=== PATIENT | male | born 1960 | race African-American/Black ===

== ENCOUNTER → 2019-08-07 | Outpatient (CLI) | payer SELFPAY ==
[2015-07-28 15:00] VITALS: BP 98/62
[~2019-08-07] MED LIST: AMLO10TA8 PO; ATEN100T PO; ENAL1TAB5 PO; INSU100I17 SQ; INSU100I27 SQ; LISI10TA2 PO
== END ==
LOC: LAB 14:05
PROVIDERS: ATTEND Internal Medicine Gastroenterology
DX: Z11.59 Encounter for screening for other viral diseases (principal)
CPT/HCPCS: C9803; U0003; 36415

== ENCOUNTER → 2019-08-12 | Day surgery (SDC) | payer OTHER ==
[~2019-08-12] MED LIST changes: +IV RINGERS,LACTATED 1000ML 1,000 ML IV SCH; +LIDOCAINE 2% PF 5 ML VIAL. ONE; +PROPOFOL 10 MG/ML (20ML) VIAL. IV ONE
--- NOTE | 2019-08-12 13:00 | PDOC1 ---
History and Physical Date of Admission Date of Admission DATE: 08/12/19 TIME: 12:51 Identification/Chief Complaint Chief Complaint Screening pre-reversal of colostomy. Source Source: Chart review, Patient History of Present Illness History of Present Illness 58 y/o male post-sigmoid resection for perforated diverticulitis. To have reversal and screening exam requested prior to this. No prior colonoscopy. Has developed peristomal hernia as well and plans to repair this as well. Denies ab d pain, overt blood in stool or melena. Wt/appetite OK. No N, V. GIFH negative. Denies heartburn, dysphagia, PUD, GB, liver or pancreatic history. No tobacco use. Occ/rare alcohol. Past Medical History Cardiovascular: HTN Endocrine: Diabetes (type II, currently diet-controlled) Past Surgical History Past Surgical History: Colon Resection (sigmoid, with repair colovesical fistula, appendectomy and end colostomy/Shankar pouch) Family History Family History: Diabetes, Hypertension Social History Smoke: No ALCOHOL: occassional Drugs: None Current Medications Current Medications Current Medications Propofol (Diprivan) 200 mg STK-MED ONCE IV ; Start 08/12/19 at 12:42; Stop 08/12/19 at 12:42; Status DC Lidocaine HCl (Lidocaine Pf 2% Vial) 5 ml STK-MED ONCE .ROUTE ; Start 08/12/19 at 12:42; Stop 08/12/19 at 12:42; Status DC Active Scripts Reported Amlodipine Besylate 10 Mg Tablet 10 Mg PO DAILY Lisinopril 10 Mg Tablet 10 Mg PO DAILY Atenolol 100 Mg Tablet 100 Mg PO DAILY Allergies Allergies: Coded Allergies: No Known Drug Allergies (Unverified , 08/12/19) ROS Review of System Otherwise negative. Physical Exam General: Alert, Oriented X3, Cooperative, No acute distress Lungs: Clear to auscultation, Normal air movement Heart: S1S2, RRR, no gallops, no murmurs Abdomen: Normal bowel sounds, Soft, No tenderness, No hepatosplenomegaly, No masses, Other (colostomy LLQ with adjacent ventral hernia) Rectal Exam: deferred (to procedure) Extremities: No cyanosis, No edema Skin: No significant lesion Neuro: Normal gait, Normal speech, Strength at 5/5 X4 ext, Normal tone, Sensation intact, Cranial nerves 3-12 NL, Reflexes 2+ Psych/Mental Status: Mental status NL, Mood NL Vitals Vitals see nursing record VTE Prophylaxis Ordered VTE Prophylaxis Devices: No VTE Pharmacological Prophylaxi: No Assessment/Plan Assessment/Plan IMP: Screening needed prior to reversal of colonstomy. Appears historically at average risk. PLAN: Colonoscopy per stoma/exam rectal pouch as well. KRISTY HOOKER MD Aug 12, 2019 13:00
--- NOTE | 2019-08-12 13:42 | PDOC4 ---
PROCEDURE Procedure Colonoscopy per stoma/exam of Shankar pouch Indication: Screening prior to colostomy reversal. Meds: per anesthesia Findings: CARLOS: Normal, prostate normal. Pouchoscopy: to ~ distal sigmoid. Occasional diverticula, otherwise normal. Some internal hemorrhoids. No retroflex attempted. Colonoscopy to cecum. Prep OK with occasional fragments of vegetable material. Mucosa normal. No polyps, masses, diverticula seen. Sara. well. IMP: Diverticulosis, otherwise normal exam. REC: Proceed with reanastomosis. Repeat colonoscopy 10 years for screening. KRISTY HOOKER MD Aug 12, 2019 13:42
[2019-08-12 14:25] VITALS: BP 121/74
== END ==
LOC: ENDOS 12:16
PROVIDERS: ATTEND Internal Medicine Gastroenterology
DX: Z12.11 Encounter for screening for malignant neoplasm of colon (principal); K57.30 Diverticulosis of large intestine without perforation or abscess without bleeding; K64.8 Other hemorrhoids; I10 Essential (primary) hypertension; E11.9 Type 2 diabetes mellitus without complications; Z90.49 Acquired absence of other specified parts of digestive tract; Z72.89 Other problems related to lifestyle; Z79.84 Long term (current) use of oral hypoglycemic drugs
CPT/HCPCS: 45378; J2704; J3490

== ENCOUNTER → 2019-08-29 | Outpatient (CLI) | payer OTHER ==
[2019-08-12 14:25] VITALS: BP 121/74
[~2019-08-29] MED LIST changes: +CHRO400T6 PO; +CINN500C2 PO; +ERGO500027 PO; -IV RINGERS,LACTATED 1000ML 1,000 ML IV SCH; -LIDOCAINE 2% PF 5 ML VIAL. ONE; -PROPOFOL 10 MG/ML (20ML) VIAL. IV ONE; +SELE200C PO
== END | disposition home or self-care (01) ==
LOC: LAB 13:49
PROVIDERS: ATTEND Surgery
DX: Z11.59 Encounter for screening for other viral diseases (principal)
CPT/HCPCS: 36415; U0003

== ENCOUNTER → 2019-09-03 | Day surgery (SDC) | payer OTHER ==
[~2019-09-03] VITALS: Ht 167.6 cm; Wt 88.9 kg
[~2019-09-03] MED LIST changes: +BUPIVACAINE-EPI 0.5%-1:200000 MPF 30 ML VIAL. ONE; +DESFLURANE 61 TO 120 MINUTES IH ONE; +DEXAMETHASONE SOD PHOS 4 MG/ML VIAL ONE; +FAMOTIDINE 20 MG/2 ML VIAL ONE; +HYDROmorphone 2 MG/ML VIAL IV PRN; +HYDROmorphone 2 MG/ML VIAL ONE; +INSULIN LISPRO 100 UNIT/ML 3ML VIAL for OP,RR ONLY. SQ PRN; +IV RINGERS,LACTATED 1000ML 1,000 ML IV SCH; +KETOROLAC 30 MG/ML VIAL. ONE; +LIDOCAINE 2% PF 5 ML VIAL. ONE; +MIDAZOLAM HCL/PF 2 MG/2 ML VIAL. ONE; +MORPHINE SULFATE 2 MG/ML VIAL. IV PRN; +ONDANSETRON PF 4 MG/2 ML VIAL. IV PRN; +ONDANSETRON PF 4 MG/2 ML VIAL. ONE; +PHENYLEPHRINE in 0.9% NACL PF 1 MG/10 ML SYRINGE. IV ONE; +PROCHLORPERAZINE 10 MG/2 ML VIAL. IV PRN; +PROPOFOL 10 MG/ML (20ML) VIAL. IV ONE; +ROCURONIUM 50 MG/5 ML VIAL. ONE; +cefOXitin SODIUM IV Push 2 GM VIAL. IVP ONE; +fentaNYL PF VIAL 100 MCG/2 ML VIAL IV PRN; +fentaNYL PF VIAL 100 MCG/2 ML VIAL ONE
[2019-09-03 07:52] VITALS: BP 126/86
--- NOTE | 2019-09-03 10:09 | NUR ---
DR. REGALADO CANCELLED SURGERY DUE TO UNCONTROLLED BLOOD SUGARS. OR NOTIFIED. PT TO F/U WITH
--- NOTE | 2019-09-03 11:25 | PDOC ---
SURGICAL PROGRESS NOTE Subjective 59 yo M with multiple hernias and colostomy. Pt scheduled for surgery today. Initial glucose was nearly 250. Repeat remains above 200 pending 6 U insulin. Given this and complexity of surgery, favor pt following up with PCP and starting appropriate medications prior to surgery. Will have pt f/u in two weeks. Vital Signs Vital Signs Date Time Temp Pulse Resp B/P (MAP) Pulse Ox O2 Delivery O2 Flow Rate FiO2 09/03/19 07:52 97.8 66 20 126/86 97 Room Air 97.8 Labs Laboratory Tests Test 09/03/19 09:09 09/03/19 09:48 Glucose (Fingerstick) 242 mg/dL (70-99) 211 mg/dL (70-99) Laboratory Tests Test 09/03/19 09:09 09/03/19 09:48 Glucose (Fingerstick) 242 mg/dL (70-99) 211 mg/dL (70-99) Justicifation of Admission Dx: Justifications for Admission: Justification of Admission Dx: N/A KIRA REGALADO MD Sep 03, 2019 11:25
[2019-09-04 01:10] LABS: HEMOGLOBIN A1C 8.2 % (4.8-5.6)
== END ==
LOC: SURG 07:16 → UNDOADMIN 07:16 → OPSVCIP 07:16 → EDSTATUS 09:00
PROVIDERS: ATTEND Surgery
DX: K43.2 Incisional hernia without obstruction or gangrene (principal); Z53.9 Procedure and treatment not carried out, unspecified reason; E11.9 Type 2 diabetes mellitus without complications; E66.9 Obesity, unspecified; I10 Essential (primary) hypertension; E78.00 Pure hypercholesterolemia, unspecified; Z98.890 Other specified postprocedural states; Z79.899 Other long term (current) drug therapy; Z68.31 Body mass index [BMI] 31.0-31.9, adult; Z87.891 Personal history of nicotine dependence; Z72.89 Other problems related to lifestyle; Z79.84 Long term (current) use of oral hypoglycemic drugs
CPT/HCPCS: 36415; 82962; 83036; J1100; J1815; J2250; J3010; J3490; J7120; J1170; J1885; J2370; J2405; J2704

== ENCOUNTER → 2019-12-20 | Outpatient (CLI) | payer OTHER ==
[2019-09-03 07:52] VITALS: BP 126/86
[~2019-12-20] MED LIST changes: +AMLO-187 PO; -AMLO10TA8 PO; +ASCO500C PO; +ATOR40TA59 PO; -BUPIVACAINE-EPI 0.5%-1:200000 MPF 30 ML VIAL. ONE; +CYAN500T52 PO; -DESFLURANE 61 TO 120 MINUTES IH ONE; -DEXAMETHASONE SOD PHOS 4 MG/ML VIAL ONE; -FAMOTIDINE 20 MG/2 ML VIAL ONE; +GLUCOSAMINE PO; -HYDROmorphone 2 MG/ML VIAL IV PRN; -HYDROmorphone 2 MG/ML VIAL ONE; -INSULIN LISPRO 100 UNIT/ML 3ML VIAL for OP,RR ONLY. SQ PRN; -IV RINGERS,LACTATED 1000ML 1,000 ML IV SCH; -KETOROLAC 30 MG/ML VIAL. ONE; +LACT1CAP8 PO; -LIDOCAINE 2% PF 5 ML VIAL. ONE; +METF10007 PO; -MIDAZOLAM HCL/PF 2 MG/2 ML VIAL. ONE; -MORPHINE SULFATE 2 MG/ML VIAL. IV PRN; -ONDANSETRON PF 4 MG/2 ML VIAL. IV PRN; -ONDANSETRON PF 4 MG/2 ML VIAL. ONE; -PHENYLEPHRINE in 0.9% NACL PF 1 MG/10 ML SYRINGE. IV ONE; -PROCHLORPERAZINE 10 MG/2 ML VIAL. IV PRN; -PROPOFOL 10 MG/ML (20ML) VIAL. IV ONE; -ROCURONIUM 50 MG/5 ML VIAL. ONE; +SUPPLEMENTS PO; -cefOXitin SODIUM IV Push 2 GM VIAL. IVP ONE; -fentaNYL PF VIAL 100 MCG/2 ML VIAL IV PRN; -fentaNYL PF VIAL 100 MCG/2 ML VIAL ONE
== END ==
LOC: LAB 14:08
PROVIDERS: ATTEND Surgery
DX: Z01.812 Encounter for preprocedural laboratory examination (principal); Z20.828 Contact with and (suspected) exposure to other viral communicable diseases; K46.9 Unspecified abdominal hernia without obstruction or gangrene
CPT/HCPCS: U0003-CS